=== PATIENT | female | born 2000 | race Hispanic/Latino ===

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

== ENCOUNTER 2022-11-27 23:36 | Emergency (ER) | payer OTHER ==
[~2022-11-27] VITALS: Ht 154.9 cm; Wt 52.6 kg
[~2022-11-27 23:36] MED LIST: CEPH500B PO
[2022-11-28] MEDS ORDERED: ONDANSETRON 4MG INJ IVP ONE (00:30)
[2022-11-28] MEDS ORDERED: KETOROLAC 30MG VIAL (30MG/ML) IVP ONE (00:30)
[2022-11-28] MEDS ORDERED: FAMOTIDINE 20MG VIAL IV ONE (00:30)
[2022-11-28] MEDS ORDERED: 0.9%NACL 1000ML 1,000 ML IV ONE (00:30)
[2022-11-28 00:31] LABS: BASOPHILS # (AUTO) 0.03 K/uL (0.00-0.20); BASOPHILS % (AUTO) 0.4 % (0.0-5.0); EOSINOPHILS # (AUTO) 0.05 K/uL (0.00-0.70); EOSINOPHILS % (AUTO) 0.6 % (0.0-8.0); HEMATOCRIT 36.1 % (36-48); IMMATURE GRANULOCYTE ABSOLUTE 0.02 K/uL (0-1); LYMPHOCYTES # (AUTO) 1.8 K/uL (1.0-4.8); LYMPHOCYTES % (AUTO) 22.8 % (21.0-51.0); MEAN CORPUSCULAR HEMOGLOBIN 26.7 pg (27.0-33.0); MEAN CORPUSCULAR HGB CONC 34.1 g/dL (32.0-36.0); MEAN CORPUSCULAR VOLUME 78.5 fL (80-100); MONOCYTES # (AUTO) 0.5 K/uL (0.1-1.0); MONOCYTES % (AUTO) 6.4 % (3.0-13.0); NEUTROPHILS # (AUTO) 5.6 K/uL (1.8-7.7); NEUTROPHILS % (AUTO) 69.6 % (40.0-77.0); PLATELET COUNT (AUTO) 182 K/uL (130-400); RED CELL DISTRIBUTION WIDTH 14.5 % (11.0-15.5)
[2022-11-28 00:39] LABS: CREATININE 0.5 mg/dL (0.5-1.5); POTASSIUM 3.3 mmol/L (3.5-5.1)
[2022-11-28 00:43] LABS: ALBUMIN 3.4 g/dL (3.5-5.0); BILIRUBIN,TOTAL 0.5 mg/dL (0.2-1.0); TOTAL PROTEIN, SERUM 7.3 g/dL (6.0-8.3)
[2022-11-28] MEDS ORDERED: ACETAMINOPHEN 500 MG TABLET ONE (01:06)
[2022-11-28 01:36] LABS: APPEARANCE,URINE CLOUDY (CLEAR); BILIRUBIN,URINE NEGATIVE (NEGATIVE); COLOR,URINE YELLOW (YELLOW); GLUCOSE, URINE (UA) NEGATIVE (NEGATIVE); KETONES,URINE 150 mg/dL (NEGATIVE); LEUKOCYTE ESTERASE ,URINE 500 Leu/uL (NEGATIVE); NITRATE,URINE NEGATIVE (NEGATIVE); OCCULT BLOOD,URINE NEGATIVE (NEGATIVE); PROTEIN,URINE 50 mg/dL (NEGATIVE); UROBILINOGEN,URINE 0.2 mg/dL (0.2-1.0)
[2022-11-28 01:39] LABS: ADD UA MICROSCOPIC YES
[2022-11-28 01:41] LABS: BACTERIA,URINE RARE /HPF (None Seen); MUCUS,URINE MANY LPF (None Seen); SQUAMOUS EPITHELIAL CELL,UR MANY /HPF (0-2); WBC,URINE 26-50 /HPF (0-1)
[2022-11-28] MEDS ORDERED: CEPH500B PO (02:34)
[2022-11-28 03:00] VITALS: BP 110/60; PULSE 78; RESP 18; O2SAT 99
[2022-11-28] MEDS ORDERED: CEPHALEXIN 500 MG CAPSULE PO ONE (03:00)
== END 2022-11-28 03:02 | disposition home or self-care (01) ==
LOC: EDH 23:36
DX: O23.42 Unspecified infection of urinary tract in pregnancy, second trimester (principal); N39.0 Urinary tract infection, site not specified; Z3A.14 14 weeks gestation of pregnancy
CPT/HCPCS: 99284; 80053; 84702; 83690; 85025; 87088; 81001; 36415; 96374; 96361; 96375; 93005; J3490; J7030; J2405; J1885

== ENCOUNTER 2024-05-24 00:14 | Emergency (ER) | payer SELFPAY ==
[~2024-05-24] VITALS: Ht 147.3 cm; Wt 56.3 kg
[2024-05-24 00:15] VITALS: TEMP 97.6
--- NOTE | 2024-05-24 00:17 | NUR ---
UA CUP PROVIDED
--- NOTE | 2024-05-24 01:21 | ERN ---
ED Note History of Present Illness Stated Complaint: VAGINAL PAIN, DISCHARGE Chief Complaint: Other Problems Time Seen by MD: 00:21 Dictation: This is a 24-year-old female who presented to the emergency room stating that she has had vaginal pain burning itching and discharge that has been going on since 05/17/2024. She states that the discharge is whitish in color but denied any odor she has tried [id number] vaginal cream without improvement. She has no history of any diabetes mellitus. No fever chills or rigors. Temperature 97.6 pulse 78 respirations 18 blood pressure 121/88 with a pulse oximetry of 99% on room air Allergies: Coded Allergies: No Known Drug Allergies (Unverified Allergy, Unknown, 04/10/19) Home Meds Active Scripts Cephalexin Monohydrate (Keflex) 500 Mg Cap, 500 MG PO QID for 7 Days, #28 CAP Prov:AR CORTEZ Sr., MD 11/28/22 Cephalexin Monohydrate (Keflex) 500 Mg Cap, 500 MG PO TID, #15 CAP Prov:JOSE F STALLINGS MD 01/16/21 Past Medical History Past Medical History: Other Additional Past Medical Hx: HX OF TACHYCARDIA Surgical History: Other Surgical History Other: RT OVARY Family History: Negative Social History: Negative LMP: May 08, 2024 : 3 Para: 3 Aborts: 0 RN Note Reviewed/Agreed w/PFSH: Yes Review of System Dictation Constitutional: Negative for fever,chills, and weight loss Eyes: Negative for injury, pain,redness, and discharge ENT: Negative for injury,pain or swelling Cardiovascular: Negative for chest pain, palpitations, and edema Respiratory: Negative for shortness of breath, cough, and wheezing, Abdomen/GI: Negative for abdominal pain, nausea, vomiting, diarrhea, and constipation Back: Negative for injury and pain : Negative for injury, bleeding and discharge MS/Extremity: Negative for injury and deformity Skin: Negative for rash, and discoloration Neuro: Negative for headache, weakness, numbness, tingling, and seizure Psych: Negative for suicide ideation, homicidal ideation, and hallucinations Initial Vital Sign VS Vital Signs Date Time Temp Pulse Resp B/P (MAP) Pulse Ox O2 Delivery O2 Flow Rate FiO2 05/24/24 00:15 97.5 78 18 121/88 99 Room Air 05/24/24 01:31 0 21 Physical Exam Dictation General: awake, alert, NAD Head/Face: Normocephalic, atraumatic Eyes: PERRL, EOMI, vision at baseline ENT: oral cavity clear, TMs clear, no signs of infection Neck: Trachea midline, supple, no nuchal rigidity Cardiovascular: RRR, normal S1/S2, No MRGs, no JVD Respiratory: CTAB, no respiratory distress, No rales or wheezes Abdomen: Soft, non-tender, non-distended, normal bowel sounds, no guarding or rebound. Skin: Warm, dry, normal turgor, no rash MS/Extremity: Pulses equal, no cyanosis, neurovascular intact, FROM Neuro: COAx4, GCS 15, strength 5/5, CN 2-12 intact, normal cerebellar exam, normal gait, Psych: Normal behavior, mood, and affect normal Extremities-trace edema without any palpable cords, Homans sign is negative Results (Laboratory/Radiology) Laboratory/Radiology Laboratory Tests Test 05/24/24 01:29 Urine Color LIGHT-YELLOW (YELLOW) Urine Appearance CLEAR (CLEAR) Urine pH 7.5 (5.0-8.0) Urine Specific [place] 1.024 (1.001-1.031) Urine Protein NEGATIVE mg/dL (NEGATIVE) Urine Glucose (UA) NEGATIVE mg/dL (NEGATIVE) Urine Ketones NEGATIVE mg/dL (NEGATIVE) Urine Occult Blood NEGATIVE (NEGATIVE) Urine Nitrate NEGATIVE (NEGATIVE) Urine Bilirubin NEGATIVE mg/dL (NEGATIVE) Urine Urobilinogen 0.2 mg/dL (0.2-1.0) Urine Leukocyte Esterase 500 Jerry/uL (NEGATIVE) H Urine RBC 2-5 /HPF (0-1) H Urine WBC 2-5 /HPF (0-1) H Urine Squamous Epithelial Cells FEW /HPF (0-2) Urine Bacteria None /HPF (None Seen) Urine HCG, Qualitative NEGATIVE (NEGATIVE) Labs Reviewed?: Yes ED Course ED Course Orders Procedure Category Date Status Time ,Urine Test LAB 05/24/24 Complete 01:14 Urinalysis Profile LAB 05/24/24 Complete 01:14 Culture Urine ALONSO 05/24/24 In Process 02:06 Ceftriaxone 1g Vial PHA 05/24/24 In Process (Rocephine 1g Inj) 02:30 Current Medications Medications (Trade) Dose Ordered Sig/Casa Route PRN Reason Start Time Stop Time Status Last Admin Dose Admin Ceftriaxone Sodium (ROCEphine 1G INJ) 1 gm Q24H IM 05/24/24 02:30 06/03/24 02:29 05/24/24 02:20 Vital Signs Date Time Temp Pulse Resp B/P (MAP) Pulse Ox O2 Delivery O2 Flow Rate FiO2 05/24/24 01:31 75 16 111/78 97 Room Air* 0 21 05/24/24 00:15 97.5 78 18 121/88 99 Room Air We will perform diagnostic labs, administer medications according to the patient's complaint. Once the results are available, will review and personally interpreted the labs to rule out any acute life-threatening emergency the trach require immediate intervention and treatment. I will then re-evaluate the patient after treatment and diagnostic exams have return to determine whether the patient requires any further testing, can safely be discharged home or need further admission to hospital for additional treatment and evaluation. Urinalysis showed very high amount of leuko esterase. Urine test is negative We will give Rocephin and discharge her on antibiotics for next 7 days she must follow up with her primary care physician for any further evaluation of vaginal infection if symptoms do not improve Medical Decision Making MDM MDM: Differential diagnosis: Candidal vulvovaginitis, bacterial vaginosis, sexually transmitted disease Rationale: Tests considered and ordered secondary to shared decision making include: Previous outside records reviewed: Old ER visits. Risk of complication and/or morbidity or mortality of patient management: None Medications-Per medication reconciliation Need for hospitalization: Patient does not meet criteria for hospitalization. Need for emergency major/minor surgery: No There are no social concerns with this patient. Prescription drug management Prescriptions will include symptomatic care Patient's prior external medical records from other ER visits were reviewed by me as indicated. Prior testing and results from previous visits were reviewed. Prior tests were taken into account with medical decision making and resource utilization, independent historian/historians were used to obtain complete medical history. I independently interpreted the test that were performed, results were reviewed by me and considered findings on radiology if ordered. Medical management and examination interpretation discussions were had by me with other qualified healthcare professionals as indicated for the patient's care. Problem List Problem List: (1) UTI (urinary tract infection) DX & DISP Disposition: Discharge Departure Impression: Primary Impression: UTI (urinary tract infection) Condition: Stable Scripts Nitrofurantoin Monohyd/M-Cryst (Macrobid 100 mg Capsule) 100 Mg Capsule 1 CAP PO BID for 5 Days, #10 CAP 0 Refills Prov: RON WATTERS MD 05/24/24 Additional Instructions: Patient and the caregiver have been informed of all the diagnostic tests and the imaging conducted during the today's visit to the emergency room and has verbalized understanding of the results I have personally reviewed and interpreted all diagnostic exams performed here in the ER today as well as the vital signs documented by the nursing staff. The patient is now being discharged to home and should follow up with the primary care physician or the specialist as directed by the ER staff. Follow-up with primary care provider in 1 to 2 days. Take medications as directed here in the emergency room. Okay to continue home medications unless otherwise discussed during your visit in the emergency room today. Return to your nearest emergency room if symptoms worsen or if there is no improvement. Call 911 if you need immediate assistance. Take Tylenol or Motrin [id number] as needed and if no contraindications are present. Increase oral hydration. A wound culture or urine culture was ordered here in the [facility] please follow-up with primary care provider and advise them to get repeat ports from our facility. If you had any Sami wrap/splints that were applied here, please do not remove them until you see your primary care or specialty. Referrals: SELF,REFERRAL (PCP) RON WATTERS MD May 24, 2024 01:21
[2024-05-24 02:04] LABS: APPEARANCE,URINE CLEAR (CLEAR); BILIRUBIN,URINE NEGATIVE (NEGATIVE); COLOR,URINE LIGHT-YELLOW (YELLOW); GLUCOSE, URINE (UA) NEGATIVE (NEGATIVE); KETONES,URINE NEGATIVE (NEGATIVE); LEUKOCYTE ESTERASE ,URINE 500 Leu/uL (NEGATIVE); NITRATE,URINE NEGATIVE (NEGATIVE); OCCULT BLOOD,URINE NEGATIVE (NEGATIVE); PH,URINE 7.5 (5.0-8.0); PROTEIN,URINE NEGATIVE (NEGATIVE); UROBILINOGEN,URINE 0.2 mg/dL (0.2-1.0)
[2024-05-24 02:06] LABS: ADD UA MICROSCOPIC YES
[2024-05-24 02:07] LABS: HCG,QUALITATIVE URINE NEGATIVE (NEGATIVE)
[2024-05-24 02:08] LABS: SQUAMOUS EPITHELIAL CELL,UR FEW /HPF (0-2)
[2024-05-24] MEDS: cefTRIAXone 1G VIAL IM SCH (02:20)
[2024-05-24] MEDS ORDERED: NITR100C4 PO (02:35)
[2024-05-24 02:48] VITALS: BP 120/81; PULSE 78; RESP 16; O2SAT 97
== END 2024-05-24 03:28 | disposition home or self-care (01) ==
LOC: EDH 00:14
DX: N39.0 Urinary tract infection, site not specified (principal); Z79.899 Other long term (current) drug therapy
CPT/HCPCS: 99283; 87086 ×2; 87186; 81001; 81025; 96372; J0696